=== PATIENT | female | born 2000 | race Caucasian/White ===

== ENCOUNTER 2023-05-26 21:03 | Emergency (ER) | payer MEDICAID ==
[~2023-05-26] VITALS: Ht 160 cm; Wt 72.6 kg
[2023-05-26 21:30] VITALS: BP 127/77; PULSE 82; RESP 18; TEMP 97.8; O2SAT 98
[2023-05-26 22:33] LABS: APPEARANCE,URINE CLEAR (CLEAR); BILIRUBIN,URINE NEGATIVE (NEGATIVE); BLOOD, URINE 1+ (NEGATIVE); COLOR,URINE YELLOW (YELLOW); LEUKOCYTE ESTERASE ,URINE 1+ (NEGATIVE); NITRITE, URINE NEGATIVE (NEGATIVE); PROTEIN,URINE NEGATIVE (NEGATIVE); UGLUCOSE NEGATIVE (NEGATIVE); UROBILINOGEN,URINE 0.2 EU/dL (0.2 - 1)
[2023-05-26 22:56] LABS: HIV RAPID SCREEN NON-REACTIVE (NON REACTIV)
[2023-05-26 23:02] LABS: BACTERIA,URINE >30 (MANY) /HPF (None Seen); MUCUS,URINE 1+ /LPF (None Seen); SQUAMOUS EPITHELIAL CELL,UR 0-3 (FEW) /LPF (0-3 (FEW))
[2023-05-26 23:20] VITALS: O2SAT 98
[2023-05-26] MEDS ORDERED: CIPR500T4 PO (23:47)
[2023-05-26] MEDS ORDERED: IBUP-2213 PO (23:47)
== END 2023-05-26 23:51 | disposition home or self-care (01) ==
LOC: MED 21:03
DX: N39.0 Urinary tract infection, site not specified (principal); J45.909 Unspecified asthma, uncomplicated; Z98.890 Other specified postprocedural states; Z88.0 Allergy status to penicillin
CPT/HCPCS: 81001; 81025; 86592; 87086; 87491; 99283